=== PATIENT | male | born 1990 | race African-American/Black ===

== ENCOUNTER 2022-03-05 12:20 | Emergency (ER) | payer MEDICAID ==
[~2022-03-05] VITALS: Ht 172.7 cm; Wt 86.0 kg
[2022-03-05] MEDS ORDERED: IBUPROFEN 400MG TABLET PO ONE (13:00)
[2022-03-05] MEDS ORDERED: ACETAMINOPHEN 325MG TABLET PO ONE (13:00)
[2022-03-05] MEDS ORDERED: IBUP-2028 MT (14:58)
[2022-03-05 16:00] VITALS: BP 123/84
== END 2022-03-05 16:00 | disposition home or self-care (01) ==
LOC: ER 12:20
DX: M25.511 Pain in right shoulder (principal); F41.9 Anxiety disorder, unspecified; F32.9 Major depressive disorder, single episode, unspecified
CPT/HCPCS: 73030; 93005; 99283